=== PATIENT | male | born 1980 | race Caucasian/White ===

== ENCOUNTER 2024-08-08 08:30 | Outpatient (CLI) | payer OTHER, SELFPAY | END 2024-08-08 08:31 | disposition home or self-care (01) | LOC: NFLDREF 08-09 05:18 | PROVIDERS: Visit Provider Family Medicine | DX: R53.83 Other fatigue (principal); Z13.220 Encounter for screening for lipoid disorders; Z13.21 Encounter for screening for nutritional disorder; Z13.29 Encounter for screening for other suspected endocrine disorder | CPT/HCPCS: 80053; 80061; 82306; 84443 ==